=== PATIENT | female | born 1940 | race Caucasian/White ===

== ENCOUNTER 2024-08-02 12:33 | Emergency (ER) | payer OTHER ==
[~2024-08-02] VITALS: Ht 167.6 cm; Wt 100.7 kg
[2024-08-02] MEDS: IV NS 0.9% 1,000 ML BAG IV ONE ×2 (12:50→17:15)
[2024-08-02 13:16] LABS: BASOPHILS % (AUTO) 0.4 % (0.0-2.0); EOSINOPHILS # (AUTO) 0.1 K/uL (0.0-0.7); EOSINOPHILS % (AUTO) 0.9 % (0.0-6.0); HEMATOCRIT 31 % (33-45); HEMOGLOBIN 10.1 g/dL (11.5-14.8); LYMPHOCYTES # (AUTO) 2.5 K/uL (0.8-4.8); LYMPHOCYTES % (AUTO) 21.5 % (20.0-44.0); MEAN CORPUSCULAR HEMOGLOBIN 29 PG (26.0-33.0); MEAN CORPUSCULAR HGB CONC 33 g/dl (31.0-36.0); MEAN CORPUSCULAR VOLUME 90 fL (82-100); MONOCYTES # (AUTO) 0.6 K/uL (0.1-1.30); MONOCYTES % (AUTO) 5.2 % (2.0-12.0); NEUTROPHILS # (AUTO) 8.4 K/uL (1.8-8.9); PLATELET COUNT (AUTO) 210 K/uL (150-450); RED BLOOD CELL COUNT(AUTO) 3.45 MIL/uL (4.0-5.2); RED CELL DISTRIBUTION WIDTH 14.3 % (11.5-15.0); WHITE BLOOD COUNT (AUTO) 11.7 K/uL (4.3-11.0)
[2024-08-02] MEDS ORDERED: ACETAMINOPHEN 325 MG TABLET ONE (13:22)
[2024-08-02] MEDS: ACETAMINOPHEN 325 MG TABLET PO ONE (13:25)
[2024-08-02 13:29] LABS: CALCIUM, SERUM 8.9 mg/dL (8.5-10.1); CARBON DIOXIDE 28 mmol/L (21-32); CHLORIDE 106 mmol/L (98-107); CREATININE 0.8 mg/dL (0.6-1.3); GLUCOSE 163 mg/dL (74-106); SODIUM SERUM 141 mmol/L (136-145); UREA NITROGEN, BLOOD 21 mg/dL (7-18)
[2024-08-02 13:34] LABS: INR 1.05 (0.91-1.10); PARTIAL THROMBOPLASTIN TIME 21.8 SEC (24.3-34.3); PROTHROMBIN TIME 11.1 SECS (9.2-11.1)
[2024-08-02] MEDS ORDERED: METF500T PO (13:39)
[2024-08-02] MEDS ORDERED: LOVA20TA2 PO (13:39)
[2024-08-02] MEDS ORDERED: LOSA1TAB42 PO (13:39)
[2024-08-02] MEDS ORDERED: ATEN50TA PO (13:39)
[2024-08-02 14:04] LABS: APPEARANCE,URINE CLEAR (CLEAR); BILIRUBIN,URINE NEGATIVE (NEGATIVE); BLOOD, URINE NEGATIVE Ery/uL (NEGATIVE); COLOR,URINE YELLOW (YELLOW); KETONES,URINE NEGATIVE (NEGATIVE); LEUKOCYTE ESTERASE ,URINE NEGATIVE (NEGATIVE); NITRITE, URINE NEGATIVE (NEGATIVE); PROTEIN,URINE NEGATIVE (NEGATIVE); UGLUCOSE NEGATIVE (NEGATIVE); UROBILINOGEN,URINE 0.2 EU/dL (0.2)
[2024-08-02] MEDS ORDERED: LIDOCAINE 1%-EPI 1:100,000 20 ML VIAL ONE (15:32)
[2024-08-02] MEDS: LIDOCAINE 1%-EPI 1:100,000 20 ML VIAL TP ONE (15:34)
[2024-08-02 18:30] VITALS: BP 100/54; TEMP 97.9; O2SAT 99
== END 2024-08-02 23:08 | disposition short-term general hospital (02) ==
LOC: ER 12:41
DX: S01.111A Laceration without foreign body of right eyelid and periocular area, initial encounter (principal); E11.9 Type 2 diabetes mellitus without complications; E86.0 Dehydration; R51.9 Headache, unspecified; I10 Essential (primary) hypertension; Z79.84 Long term (current) use of oral hypoglycemic drugs; Z20.822 Contact with and (suspected) exposure to COVID-19; Z79.899 Other long term (current) drug therapy; X58.XXXA Exposure to other specified factors, initial encounter; Y93.01 Activity, walking, marching and hiking; Y92.89 Other specified places as the place of occurrence of the external cause; Y99.8 Other external cause status
CPT/HCPCS: 12011; 36415; 70450; 71045; 72125; 80048; 81003; 83880; 84484; 85025; 85730; 87426; 93005; 96360; 96361; 99285; J3490; J7030